=== PATIENT | male | born 1980 | race Caucasian/White ===

== ENCOUNTER 2018-10-05 10:25 | Emergency (ER) | payer OTHER ==
--- NOTE | 2018-10-05 10:33 | EDPHY ---
H & P Stated Complaint: L chest pressure x ~1 wk, radiation to L arm today Time Seen by Provider: 10/05/18 10:33 HPI/ROS: CHIEF COMPLAINT: Chest pressure, palpitations HISTORY OF PRESENT ILLNESS: The patient presents to the ED with a one-week history of chest palpitations that have been intermittent. Over the past 2 days he has developed some sensation of a fasciculation in the left side of his chest in over the past 2 days has developed some left-sided chest pressure and discomfort. The patient denies any pleuritic chest pain. He denies asymmetric calf pain or swelling. The patient is a formal education professional. He does have a history of early repolarization on EKG. He has no cardiac pathology. The patient denies any history of recent exertional chest pain or shortness of breath. The patient did report some discomfort in his left arm and neck yesterday. The patient recently established a relationship with a primary care provider and is scheduled to undergo physical exam on Saturday. The patient denies any additional infectious symptoms of fever, cough or congestion. REVIEW OF SYSTEMS: A comprehensive 10 point review of systems is otherwise negative aside from elements mentioned in the history of present illness. Source: Patient - Personal History Current Tetanus/Diphtheria Vaccine: No Current Tetanus Diphtheria and Acellular Pertussis (TDAP): No - Medical/Surgical History Hx Asthma: No Hx Chronic Respiratory Disease: No Hx Diabetes: No Hx Cardiac Disease: No Hx Renal Disease: No Hx Cirrhosis: No Hx Alcoholism: No Hx HIV/AIDS: No Hx Splenectomy or Spleen Trauma: No Other PMH: education professional--"abnormal ekg" brings old ekg with him - Social History Smoking Status: Never smoked - Physical Exam Exam: General Appearance: Alert, no distress Eyes: Pupils equal and round no pallor or injection ENT, Mouth: Mucous membranes moist Respiratory: There are no retractions, lungs are clear to auscultation Cardiovascular: Regular rate and rhythm Gastrointestinal: Abdomen is soft and nontender, no masses, bowel sounds normal Neurological: A&O, normal motor function, normal sensory exam, normal cranial nerves Skin: Warm and dry, no rashes Musculoskeletal: Neck is supple nontender Extremities: symmetrical, full range of motion Psychiatric: Patient is oriented X 3, there is no agitation Constitutional: Initial Vital Signs Temperature (C) 36.7 C 10/05/18 10:28 Heart Rate 68 10/05/18 10:28 Respiratory Rate 16 10/05/18 10:28 Blood Pressure 141/94 H 10/05/18 10:28 O2 Sat (%) 98 10/05/18 10:28 O2 Delivery Mode Room Air Allergies/Adverse Reactions: No Known Allergies Allergy (Unverified 10/05/18 10:28) Home Medications: Medication Instructions Recorded NK [No Known Home Meds] 10/05/18 Medical Decision Making - Diagnostics EKG Interpretation: EKG: Complete interpretation has been separately recorded in the [email or web address] archive. Summary impression: Sinus rhythm, rate 64, early repolarization is noted, no ST segment elevation or depression present Imaging Results: Imaging Impressions Chest X-Ray 10/05/18 10:45 Impression: Equivocal pneumomediastinum versus summation artifact. Findings discussed with Hussain Head 10/05/2018 at 11:14. Chest X-Ray 10/05/18 11:15 Impression: Subtle mediastinal lucencies suspicious for pneumomediastinum. ED Course/Re-evaluation: The patient presents the ED with a one-week history of vague chest pain. The patient has no risk factors for coronary artery disease. The patient's EKG demonstrates early repolarization. The patient's troponin is normal. Interestingly, the patient's EKG demonstrates pneumomediastinum. In discussing the causes of this with the patient he gives no obvious history of coughing, sneezing or Valsalva maneuver. There is nothing to suggest an esophageal rupture or mediastinum is based upon the patient's exam. The patient has been told that this is a benign condition which is typically self-limited. The patient is scheduled to see a primary care provider on Saturday. The patient has been instructed to return to the ED for markedly worsening pain , fever or other concerns. The patient will also be given the number of a image assembler to follow up with for any ongoing symptoms. Differential Diagnosis: Differential diagnosis considered includes acute coronary syndrome, dehydration , metabolic abnormality, dissection, pneumothorax, pneumomediastinum - Data Points Laboratory Results: Laboratory Results 10/05/18 10:40 10/05/18 10:40 10/05/18 10/05/18 10/05/18 10:43 10:40 10:40 WBC 5.53 10^3/uL 10^3/uL (3.80-9.50) RBC 5.26 10^6/uL 10^6/uL (4.40-6.38) Hgb 17.1 g/dL g/dL (13.7-17.5) Hct 47.5 % % (40.0-51.0) MCV 90.3 fL fL (81.5-99.8) MCH 32.5 pg pg (27.9-34.1) MCHC 36.0 g/dL g/dL (32.4-36.7) RDW 12.0 % % (11.5-15.2) Plt Count 232 10^3/uL 10^3/uL (150-400) MPV 10.9 fL fL (8.7-11.7) Neut % (Auto) 58.7 % % (39.3-74.2) Lymph % (Auto) 29.8 % % (15.0-45.0) [place] % (Auto) 9.4 % % (4.5-13.0) Eos % (Auto) 1.4 % % (0.6-7.6) Baso % (Auto) 0.5 % % (0.3-1.7) Nucleat RBC Rel Count 0.0 % % (0.0-0.2) Absolute Neuts (auto) 3.24 10^3/uL 10^3/uL (1.70-6.50) Absolute Lymphs (auto) 1.65 10^3/uL 10^3/uL (1.00-3.00) Absolute Monos (auto) 0.52 10^3/uL 10^3/uL (0.30-0.80) Absolute Eos (auto) 0.08 10^3/uL 10^3/uL (0.03-0.40) Absolute Basos (auto) 0.03 10^3/uL 10^3/uL (0.02-0.10) Absolute Nucleated RBC 0.00 10^3/uL 10^3/uL (0-0.01) Immature Gran % 0.2 % % (0.0-1.1) Immature Gran # 0.01 10^3/uL 10^3/uL (0.00-0.10) Sodium 142 mEq/L mEq/L (135-145) Potassium 4.2 mEq/L mEq/L (3.5-5.2) Chloride 107 mEq/L mEq/L (97-110) Carbon Dioxide 21 mEq/l L mEq/l (22-31) Anion Gap 14 mEq/L mEq/L (6-14) BUN 16 mg/dL mg/dL (7-23) Creatinine 0.9 mg/dL mg/dL (0.7-1.3) Estimated GFR > 60 Glucose 96 mg/dL mg/dL (70-100) Calcium 9.9 mg/dL mg/dL (8.5-10.4) POC Troponin I 0.00 ng/mL ng/mL (0.00-0.08) Point of Care Test Results: Chemistry 10/05/18 10:43 POC Troponin I 0.00 ng/mL ng/mL (0.00-0.08) Departure - Departure Disposition: Home, Routine, Self-Care Clinical Impression: Chest pain, Pneumomediastinum Condition: Good Instructions: Chest Pain (ED) Additional Instructions: 1. Please follow-up with your primary care provider as scheduled on Saturday. You have also been given the number of Dr. Wesley our on-call image assembler if you continue to have ongoing mild symptoms. 2. Please return to the emergency department for markedly worsening chest pain or shortness of breath. Should this occur we would want to repeat some testing and possibly your x-ray. 3. Take Ibuprofen or Motrin 600 mg by mouth three times a day. 4. Your x-ray demonstrates pneumomediastinum. This is a benign condition in your case in should resolve spontaneously over the next week. Referrals: Bolivar Cruz DO [Primary Care Provider] - As per Instructions Hussain Wesley MD [Medical Doctor] - As per Instructions
[2018-10-05 11:09] LABS: PLATELET COUNT 232 10^3/uL (150-400)
[2018-10-05 12:32] VITALS: BP 113/65
--- NOTE | 2018-10-05 13:25 | CPEKG ---
Test Reason : OPEN Blood Pressure : / mmHG Vent. Rate : 064 BPM Atrial Rate : 063 BPM P-R Int : 172 ms QRS Dur : 107 ms QT Int : 407 ms P-R-T Axes : 081 100 055 degrees QTc Int : 420 ms Sinus rhythm Consider right ventricular hypertrophy ST elev, probable normal early repol pattern Confirmed by Hussain Head ([id number]) on 10/05/2018 1:25:12 PM Referred By: Confirmed By:Hussain Head
== END 2018-10-05 12:30 | disposition home or self-care (01) ==
LOC: MERGE 10:25
DX: R07.89 Other chest pain (principal); J98.2 Interstitial emphysema; R00.2 Palpitations
CPT/HCPCS: 84484-PO